=== PATIENT | female | born 1955 | race American Indian/Alaskan Native ===

== ENCOUNTER 2018-06-22 23:55 | Emergency (ER) | payer OTHER ==
[2018-06-23 00:18] VITALS: BP 169/76
[2018-06-23] MEDS ORDERED: IBUPROFEN PO ONE (02:21)
--- NOTE | 2018-06-23 02:26 | Emergency Department Report ---
ED ENT HPI - General Chief complaint: Pain General Stated complaint: FOREIGN BODY RIGHT NOSTRIL Time Seen by Provider: 06/23/18 02:20 Source: patient Mode of arrival: Ambulatory Limitations: No Limitations - History of Present Illness Initial comments: 63-year-old female presents to the emergency room for pain to the inside of her right hostile. Patient reports she was seen by her M.D. on Thursday approximately 2 PM and was told that she has a cyst to her nose. Provider placed her on nasal spray and antibiotics. Patient comes in for worse sandeep pain. Patient took Tylenol approximately 11 PM. MD complaint: other (nostril pain) -: This evening Location: nose (right nostril) Severity: severe Severity scale (0 -10): 9 Quality: burning, aching Consistency: constant Improves with: none Worsens with: none Associated Symptoms: rhinorrhea - Related Data Previous Rx's Medication Instructions Recorded Last Taken Type Acetaminophen [Tylenol] 650 mg PO QID PRN 10 Days #60 01/02/18 Unknown Rx capsule Ciprofloxacin HCl [Cipro] 500 mg PO BID #20 tablet 01/02/18 Unknown Rx Tamsulosin HCl [Flomax] 0.4 mg PO BIDWM #30 cap.er.24h 01/02/18 Unknown Rx traMADol [Ultram] 50 mg PO Q4HR PRN #12 tablet 01/02/18 Unknown Rx Ibuprofen [Motrin 600 MG tab] 600 mg PO Q8H #15 tablet 06/23/18 Unknown Rx Allergies Allergy/AdvReac Type Severity Reaction Status Date / Time No Known Allergies Allergy Verified 06/23/18 00:04 ED Dental HPI - General Chief complaint: Pain General Stated complaint: FOREIGN BODY RIGHT NOSTRIL Time Seen by Provider: 06/23/18 02:20 Source: patient Mode of arrival: Ambulatory Limitations: No Limitations - Related Data Previous Rx's Medication Instructions Recorded Last Taken Type Acetaminophen [Tylenol] 650 mg PO QID PRN 10 Days #60 01/02/18 Unknown Rx capsule Ciprofloxacin HCl [Cipro] 500 mg PO BID #20 tablet 01/02/18 Unknown Rx Tamsulosin HCl [Flomax] 0.4 mg PO BIDWM #30 cap.er.24h 01/02/18 Unknown Rx traMADol [Ultram] 50 mg PO Q4HR PRN #12 tablet 01/02/18 Unknown Rx Ibuprofen [Motrin 600 MG tab] 600 mg PO Q8H #15 tablet 06/23/18 Unknown Rx Allergies Allergy/AdvReac Type Severity Reaction Status Date / Time No Known Allergies Allergy Verified 06/23/18 00:04 ED Review of Systems ROS: Stated complaint: FOREIGN BODY RIGHT NOSTRIL Other details as noted in HPI Comment: All other systems reviewed and negative ED Past Medical Hx - Past Medical History Previous Medical History?: Yes Additional medical history: kidney stones - Surgical History Past Surgical History?: Yes Hx Cholecystectomy: Yes Hx Appendectomy: Yes Additional Surgical History: hysterectomy, carpal tunnel - Social History Smoking Status: Never Smoker Substance Use Type: None - Medications Home Medications: Home Medications Medication Instructions Recorded Confirmed Last Taken Type Acetaminophen [Tylenol] 650 mg PO QID PRN 10 Days #60 01/02/18 Unknown Rx capsule Ciprofloxacin HCl [Cipro] 500 mg PO BID #20 tablet 01/02/18 Unknown Rx Tamsulosin HCl [Flomax] 0.4 mg PO BIDWM #30 cap.er.24h 01/02/18 Unknown Rx traMADol [Ultram] 50 mg PO Q4HR PRN #12 tablet 01/02/18 Unknown Rx Ibuprofen [Motrin 600 MG tab] 600 mg PO Q8H #15 tablet 06/23/18 Unknown Rx ED Physical Exam - General Limitations: No Limitations General appearance: alert, in no apparent distress - Head Head exam: Present: atraumatic, normocephalic - Expanded Head Exam Expanded Head exam: Present: general tenderness (maxillary and frontal sinus tenderness) - Eye Eye exam: Present: normal appearance - ENT ENT exam: Present: mucous membranes moist, other - Expanded ENT Exam Expanded Mouth exam: Present: other (bilateral nostrils patent) - Neurological Exam Neurological exam: Present: alert, oriented X3 - Psychiatric Psychiatric exam: Present: normal affect, normal mood - Skin Skin exam: Present: warm, dry, intact, normal color. Absent: rash ED Course Vital Signs 06/23/18 06/23/18 00:16 00:17 Temperature 98.0 F Pulse Rate 75 76 Respiratory 18 18 Rate Blood Pressure 169/76 Blood Pressure 169/76 [Right] O2 Sat by Pulse 97 98 Oximetry ED Medical Decision Making - Medical Decision Making Recent has been evaluated by this provider and a ACC. Ibuprofen 600 mg given for pain management. Discussed with patient and to continue with medication that was given to them by their primary care provider. She can take [id number] ibuprofen 600 mg as needed for pain. 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 Critical care attestation.: If time is entered above; I have spent that time in minutes in the direct care of this critically ill patient, excluding procedure time. ED Disposition Clinical Impression: Cyst of nasal cavity Disposition: DC- TO HOME OR SELFCARE Is pt being admited?: No Does the pt Need Aspirin: No Condition: Stable Additional Instructions: Please take pain medication as needed. Follow-up with the ear nose and throat provider I have listed one below for your convenience. Por favor, tome medicamentos para el dolor segn sea necesario. Para wilson conveniencia, priyank un seguimiento con el proveedor de la nariz y la garganta del odo. Prescriptions: Ibuprofen [Motrin 600 MG tab] 600 mg PO Q8H #15 tablet Referrals: [facility] MD ALIVIA [Primary Care Provider] - 3-5 Days Print Language: GAMBIAN
== END 2018-06-23 02:40 | disposition home or self-care (01) ==
LOC: ED 23:55
DX: J34.1 Cyst and mucocele of nose and nasal sinus (principal); J01.10 Acute frontal sinusitis, unspecified; J01.00 Acute maxillary sinusitis, unspecified; Z87.442 Personal history of urinary calculi; Z90.49 Acquired absence of other specified parts of digestive tract; Z90.710 Acquired absence of both cervix and uterus
CPT/HCPCS: 99282